=== PATIENT | female | born 1975 | race Two or more races ===

== ENCOUNTER 2020-03-05 09:16 | Emergency (ER) | payer MEDICAID ==
[~2020-03-05] VITALS: Ht 165.1 cm; Wt 59.0 kg
[~2020-03-05 09:16] MED LIST: BENZ0.5T43 PO; BROM5CAP3 PO; CALC-26 PO; CARB100T49 PO; CEPH500C2 PO; CHOL100044 PO; CLIN300C12 PO; D-ME473S8 PO; DOCU-272 PO; LEVO25TA7 PO; METO-539 PO; MOM PO; MUPI1OIN4 TP; NA P230E RC; OLAN15TA17 PO; OLAN2.5T29 PO; QUET200T29 PO
[2020-03-05 11:47] LABS: BASOPHILS % 0.2 % (0.0-2.0); HEMATOCRIT. 38.3 % (36.0-48.0); HEMOGLOBIN. 12.6 g/dL (12.0-16.0); LYMPHOCYTES % 17.7 % (20.0-50.0); MEAN CORPUSCULAR HEMOGLOBIN 28.7 pg (28.0-32.0); MEAN CORPUSCULAR VOLUME 87.2 fL (81.0-99.0); MEAN PLATELET VOLUME 9.4 fl (7.4-10.4); MONOCYTES % 8.1 % (2.0-8.0); PLATELET 215 x1000/uL (130-400); RED BLOOD CELL COUNT 4.39 mill/uL (4.2-5.4); RED CELL DISTRIBUTION WIDTH 15.5 % (11.6-14.6)
[2020-03-05 11:55] LABS: CHLORIDE 109 mEq/L (98-107)
[2020-03-05 12:00] LABS: ETHANOL BLOOD < 10 mg/dL
[2020-03-05 12:05] LABS: CARBAMAZEPINE 9.7 ug/mL (4-12)
[2020-03-05 12:17] LABS: PHENOBARBITAL < 2.1 ug/mL (15.0-40.0); VALPROIC ACID < 3.0 ug/mL (50-100)
[2020-03-05] MEDS ORDERED: LIDOCAINE HCL 1% 20ML VIAL (Pyxis) INJ INFIL ONE (13:45)
[2020-03-05] MEDS ORDERED: CEFTRIAXONE SODIUM 1 G/VIAL IM ONE (13:45)
[2020-03-05 14:47] LABS: CLARITY URINE CLEAR (CLEAR); COLOR URINE YELLOW (YELLOW); KETONES URINE NEGATIVE (NEGATIVE); LEUKOCYTE ESTERASE URINE 3+ (NEGATIVE); NITRITE URINE POSITIVE (NEGATIVE); OCCULT BLOOD URINE 1+ (NEGATIVE); PH URINE 7.5 (4.5-8.0); PROTEIN URINE NEGATIVE (NEGATIVE); SPECIFIC GRAVITY URINE 1.009 (1.005-1.030); UROBILINOGEN URINE 0.2 E.U./dL (0.2-1.0)
[2020-03-05 15:08] LABS: CANNABINOID URINE SCREEN NEGATIVE (NEGATIVE); METHADONE URINE SCREEN NEGATIVE (NEGATIVE); OPIATES URINE SCREEN NEGATIVE (NEGATIVE); PHENCYCLIDINE URINE SCREEN NEGATIVE (NEGATIVE)
[2020-03-05 15:10] LABS: *AMPHETAMINES SCREEN URINE NEGATIVE (NEGATIVE); *BARBITURATES SCREEN URINE NEGATIVE (NEGATIVE); *BENZODIAZEPINES SCREEN URINE NEGATIVE (NEGATIVE); *COCAINE SCREEN URINE NEGATIVE (NEGATIVE)
[2020-03-05 19:00] VITALS: BP 104/54
== END 2020-03-05 19:20 | disposition home or self-care (01) ==
LOC: ER 09:24
DX: G40.909 Epilepsy, unspecified, not intractable, without status epilepticus (principal); G80.9 Cerebral palsy, unspecified; F29 Unspecified psychosis not due to a substance or known physiological condition
CPT/HCPCS: 36415; 80053; 80156; 80165; 80184; 80185; 80305; 80320; 81003; 85025; 87077; 87086; 87186; 93005; 96372; 99285; J0696; J3490; G0480